=== PATIENT | female | born 1945 | race Caucasian/White ===

== ENCOUNTER → 2020-08-17 | Outpatient (CLI) | payer MEDICARE | LOC: KOH-I 14:48 | DX: M25.571 Pain in right ankle and joints of right foot (principal); M79.89 Other specified soft tissue disorders | CPT/HCPCS: 73600; 73620 ==

== ENCOUNTER → 2021-06-25 | Outpatient (CLI) | payer MEDICARE | LOC: CT 06:58 | DX: E11.9 Type 2 diabetes mellitus without complications (principal); K21.9 Gastro-esophageal reflux disease without esophagitis; K29.70 Gastritis, unspecified, without bleeding; R32 Unspecified urinary incontinence; R10.11 Right upper quadrant pain; R10.31 Right lower quadrant pain; K90.9 Intestinal malabsorption, unspecified; Z90.710 Acquired absence of both cervix and uterus; Z90.49 Acquired absence of other specified parts of digestive tract; N28.89 Other specified disorders of kidney and ureter | CPT/HCPCS: Q9967 ==

== ENCOUNTER → 2021-08-28 | Outpatient (CLI) | payer MEDICARE | LOC: RAD 08-27 08:00 | DX: R10.32 Left lower quadrant pain (principal) | CPT/HCPCS: 74270 ==

== ENCOUNTER 2021-10-01 17:31 | Emergency (ER) | payer OTHER ==
[2021-10-01 19:22] LABS: HEMOGLOBIN 14.1 gm/dl (12.3-15.3); RED BLOOD COUNT 4.39 M/UL (4.00-5.10); WHITE BLOOD COUNT 8.4 K/UL (4.5-11.0)
[2021-10-01 19:47] LABS: BUN/CREATININE RATIO 23 (0-10)
== END 2021-10-01 22:04 | disposition home or self-care (01) ==
LOC: ER1 17:31
PROVIDERS: Physician Assistant
DX: S51.011A Laceration without foreign body of right elbow, initial encounter (principal); S81.811A Laceration without foreign body, right lower leg, initial encounter; I10 Essential (primary) hypertension; E11.9 Type 2 diabetes mellitus without complications; Z88.2 Allergy status to sulfonamides; Z23 Encounter for immunization; V49.40XA Driver injured in collision with unspecified motor vehicles in traffic accident, initial encounter; Y92.410 Unspecified street and highway as the place of occurrence of the external cause
CPT/HCPCS: 71045; 80053; 81001; 82550; 82553; 84484; 85025; 90471; 90715; 99283

== ENCOUNTER → 2021-10-12 | Outpatient (CLI) | payer OTHER | LOC: KOH-I 12:34 | DX: S99.919A Unspecified injury of unspecified ankle, initial encounter (principal) | CPT/HCPCS: 73030; 73610 ==

== ENCOUNTER → 2021-11-15 | Outpatient (CLI) | payer OTHER ==
[2021-11-15 10:32] LABS: BORDETELLA PARAPERTUSSIS Not Detected (Not Detectd); BORDETELLA PERTUSSIS Not Detected (Not Detectd); CHLAMYDIA PNEUMONIAE Not Detected (Not Detectd); CORONAVIRUS HKU1 Not Detected (Not Detectd); CORONAVIRUS NL63 Not Detected (Not Detectd); CORONAVIRUS OC43 Not Detected (Not Detectd); CORONOAVIRUS 229E Not Detected (Not Detectd); HUMAN METAPNEUMOVIRUS Not Detected (Not Detectd); HUMAN RHINOVIRUS/ENTEROVIRUS Not Detected (Not Detectd); INFLUENZA A Not Detected (Not Detectd); INFLUENZA B Not Detected (Not Detectd); MYCOPLASMA PNEUMONIAE Not Detected (Not Detectd); PARAINFLUENZA VIRUS 1 Not Detected (Not Detectd); PARAINFLUENZA VIRUS 2 Not Detected (Not Detectd); PARAINFLUENZA VIRUS 3 Not Detected (Not Detectd); PARAINFLUENZA VIRUS 4 Not Detected (Not Detectd); RESPIRATORY SYNCYTIAL VIRUS Not Detected (Not Detectd)
[2021-11-15 12:43] LABS: SARS-CoV-2 NOT DETECTED (Not Detectd)
== END ==
LOC: LAB 10:11
PROVIDERS: Physician Assistant
DX: R05.9 Cough, unspecified (principal); Z20.822 Contact with and (suspected) exposure to COVID-19
CPT/HCPCS: 71046; 87633

== ENCOUNTER → 2021-11-20 | Outpatient (CLI) | payer MEDICARE ==
[~2021-11-20] VITALS: Ht 160 cm; Wt 64.4 kg
== END ==
LOC: EROP 11:45
DX: U07.1 COVID-19 (principal); Z23 Encounter for immunization
CPT/HCPCS: M0222; Q0222

== ENCOUNTER → 2021-12-17 | Outpatient (CLI) | payer OTHER, MEDICARE | LOC: KOH-I 10:30 | DX: M25.572 Pain in left ankle and joints of left foot (principal); F40.240 Claustrophobia; S99.919A Unspecified injury of unspecified ankle, initial encounter; S99.921D Unspecified injury of right foot, subsequent encounter; V89.2XXA Person injured in unspecified motor-vehicle accident, traffic, initial encounter; M65.9 Synovitis and tenosynovitis, unspecified; S93.492A Sprain of other ligament of left ankle, initial encounter | CPT/HCPCS: 73721 ==

== ENCOUNTER → 2021-12-21 | Outpatient (CLI) | payer OTHER, MEDICARE | LOC: KOH-I 13:01 | DX: M54.50 Low back pain, unspecified (principal); M47.816 Spondylosis without myelopathy or radiculopathy, lumbar region | CPT/HCPCS: 72110 ==

== ENCOUNTER → 2022-01-25 | Outpatient (CLI) | payer MEDICARE | LOC: KOH-I 08:21 | DX: M47.26 Other spondylosis with radiculopathy, lumbar region (principal) | CPT/HCPCS: 72148 ==